=== PATIENT | female | born 1965 | race Two or more races ===

== ENCOUNTER 2019-03-05 23:38 | Emergency (ER) | payer MEDICAID, OTHER ==
[~2019-03-05] VITALS: Ht 160 cm; Wt 68.0 kg
[2019-03-06 00:35] VITALS: BP 122/74
[2019-03-06] MEDS ORDERED: NAPROXEN 250MG TABLET PO ONE (03:00)
[2019-03-06 05:40] LABS: CLARITY URINE CLEAR (CLEAR); COLOR URINE YELLOW (YELLOW); KETONES URINE NEGATIVE (NEGATIVE); LEUKOCYTE ESTERASE URINE TRACE (NEGATIVE); NITRITE URINE NEGATIVE (NEGATIVE); OCCULT BLOOD URINE NEGATIVE (NEGATIVE); PH URINE 5.5 (4.5-8.0); PROTEIN URINE NEGATIVE (NEGATIVE); SPECIFIC GRAVITY URINE 1.008 (1.005-1.030); UROBILINOGEN URINE 0.2 E.U./dL (0.2-1.0)
== END 2019-03-06 03:58 | disposition left against medical advice (07) ==
LOC: ER 23:38
DX: R42 Dizziness and giddiness (principal); F41.9 Anxiety disorder, unspecified
CPT/HCPCS: 81003; 99283; Z7610